=== PATIENT | female | born 2000 | race Caucasian/White ===

== ENCOUNTER 2020-01-14 10:58 | Outpatient (CLI) | payer BC | END 2020-01-14 20:41 | disposition home or self-care (01) | LOC: MRD 10:58 | PROVIDERS: ATTEND Podiatrist Foot & Ankle Surgery | DX: M19.071 Primary osteoarthritis, right ankle and foot (principal); M19.172 Post-traumatic osteoarthritis, left ankle and foot | CPT/HCPCS: 73630 ==

== ENCOUNTER 2020-05-20 07:19 | Day surgery (SDC) | payer BC, SELFPAY ==
[2020-04-30 10:03] LABS: BASOPHILS % (AUTO) 0.4 % (0.0-2.0); EOSINOPHILS # (AUTO) 0.3 K/uL (0-0.4); EOSINOPHILS % (AUTO) 5.6 % (0.0-4.0); HEMATOCRIT 36.9 % (36-48); HEMOGLOBIN 12.4 g/dL (12.0-16.0); LYMPHOCYTES # (AUTO) 2.1 K/uL (2.5-16.5); LYMPHOCYTES % (AUTO) 46.3 % (20.5-51.1); MEAN CORPUSCULAR HEMOGLOBIN 28 pg (27-31); MEAN CORPUSCULAR HGB CONC 34 g/dL (33-37); MEAN CORPUSCULAR VOLUME 83.6 fL (80-94); MONOCYTES # (AUTO) 0.4 K/uL (0.8-1.0); NEUTROPHILS # (AUTO) 1.7 K/uL (1.8-7.7); NEUTROPHILS % (AUTO) 37.7 % (42.2-75.2); PLATELET COUNT (AUTO) 233 K/uL (140-450); RED BLOOD CELL COUNT(AUTO) 4.42 MIL/uL (4.20-5.40); RED CELL DISTRIBUTION WIDTH 12.8 % (11.6-13.7); WHITE BLOOD COUNT (AUTO) 4.5 K/uL (4.8-10.8)
[2020-04-30 10:33] LABS: PROTHROMBIN TIME 9.7 secs (10.8-13.4)
[2020-04-30 10:57] LABS: ANION GAP 13.3 (8-16); CARBON DIOXIDE 24.2 mmol/L (21-32); CREATININE 0.4 mg/dL (0.6-1.3); POTASSIUM 3.5 mmol/L (3.5-5.1); TOTAL BILIRUBIN 0.7 mg/dL (0.0-1.0)
[2020-04-30 10:58] LABS: ALBUMIN 3.7 g/dL (3.4-5.0)
[~2020-05-20] VITALS: Ht 154.9 cm; Wt 67.1 kg
[2020-05-20] MEDS ORDERED: LIDOCAINE 1% 500 MG/50 ML VIAL ONE (08:47)
[2020-05-20] MEDS ORDERED: ceFAZolin 1,000 MG VIAL ONE (09:02)
[2020-05-20] MEDS ORDERED: ESMOLOL 100 MG/10 ML VIAL IV ONE (09:02)
[2020-05-20] MEDS ORDERED: ONDANSETRON 4 MG/2 ML VIAL ONE (09:02)
[2020-05-20] MEDS ORDERED: LIDOCAINE 2% 100 MG/5 ML SYR IVP ONE (09:02)
[2020-05-20] MEDS ORDERED: NEOSTIGMINE 1:1000 10 MG/10 ML VIAL ONE (09:02)
[2020-05-20] MEDS ORDERED: SEVOFLURANE 250 ML BTL INH ONE (09:02)
[2020-05-20] MEDS ORDERED: PROPOFOL 200 MG/20 ML VIAL IV ONE (09:02)
[2020-05-20] MEDS ORDERED: GLYCOPYRROLATE 0.2 MG/ML VIAL ONE (09:02)
[2020-05-20] MEDS ORDERED: fentaNYL citrate 0.05 MG/ML VIAL ONE (09:02)
[2020-05-20] MEDS ORDERED: ROCURONIUM 50 MG/5 ML VIAL IV ONE (09:02)
[2020-05-20] MEDS ORDERED: DEXAMETHASONE 4 MG/ML VIAL ONE (09:02)
[2020-05-20] MEDS ORDERED: KETOROLAC 30 MG/ML VIAL ONE (09:02)
[2020-05-20] MEDS ORDERED: MEPERIDINE 25 MG/ML SYR ONE (09:02)
[2020-05-20] MEDS ORDERED: fentaNYL citrate 0.05 MG/ML VIAL IVP PRN (09:45)
[2020-05-20] MEDS ORDERED: LACTATED RINGERS 1,000 ML IV SCH (09:45)
[2020-05-20] MEDS ORDERED: diphenhydrAMINE 50 MG/ML VIAL IVP PRN (09:45)
[2020-05-20] MEDS ORDERED: ONDANSETRON 4 MG/2 ML VIAL IVP PRN (09:45)
[2020-05-20] MEDS ORDERED: oxyCODONE/APAP 5/325 MG 1 TAB TAB PO PRN (09:45)
[2020-05-20] MEDS ORDERED: LORazepam 2 MG/ML VIAL IM/IVP SCH (11:15)
== END 2020-05-20 13:00 | disposition home or self-care (01) ==
LOC: MDS 07:19 → MMU 07:19 → MDS 13:00
PROVIDERS: ATTEND Podiatrist Foot & Ankle Surgery
DX: M79.5 Residual foreign body in soft tissue (principal); M21.6X1 Other acquired deformities of right foot; F17.200 Nicotine dependence, unspecified, uncomplicated; Z79.01 Long term (current) use of anticoagulants; Z79.899 Other long term (current) drug therapy
CPT/HCPCS: 28112; 28113; 28193; 36415; 73630; 80053; 81025; 84702; 85025; 85610; 85730; C1713; J0690; J1100; J1885; J2001; J2175; J2405; J2704; J2710; J3010; J3490; J7060; J7120; Q0092; U0003